=== PATIENT | male | born 1995 | race Caucasian/White ===

== ENCOUNTER → 2016-12-01 | Outpatient (CLI) | payer OTHER ==
--- NOTE | 2016-12-02 07:57 | REP ---
Clinical: Pain with recent trauma. Technique: AP and lateral views of the right tibia / fibula. Findings: No acute fracture dislocation. Skeletal structures are normal. Surrounding soft tissues without subcutaneous emphysema or radiodense foreign body. Impression: No acute fracture dislocation. Signed by Miguel Snell MD 12/02/2016 07:48 A
== END ==
LOC: M ADAMS 18:48
PROVIDERS: ATTEND Physician Assistant
DX: M79.661 Pain in right lower leg (principal)